=== PATIENT | female | born 1965 | race Two or more races ===

== ENCOUNTER 2017-06-17 20:14 | Emergency (ER) | payer BC ==
[2017-06-17] MEDS ORDERED: Lidocaine 2% PF * 5 ML VIAL INJ ONE (20:39)
--- NOTE | 2017-06-17 20:40 | UC ---
Laceration HPI - HPI Summary HPI Summary: Pt presents with laceration to left thumb. She tells me that about an hour ago this evening, she was slicing bread and the knife slipped and she sustained a laceration to her distal left thumb pad. She is unsure when her last tetanus was and is refusing an updated tdap today. - History Of Current Complaint Chief Complaint: UCLaceration Stated Complaint: FINGER LACERATION Time Seen by Provider: 06/17/17 20:39 Hx Obtained From: Patient Hx Last Menstrual Period: menopause Laceration Location: Finger Mechanism Of Injury: Sharp Trauma Onset/Duration: Sudden Onset Severity: Moderate Pain Intensity: 6 Pain Scale Used: 0-10 Numeric - Allergies/Home Medications Allergies/Adverse Reactions: Allergies Allergy/AdvReac Type Severity Reaction Status Date / Time No Known Allergies Allergy Verified 08/18/13 12:49 PMH/Surg Hx/FS Hx/Imm Hx Previously Healthy: Yes - Surgical History Surgical History: Yes Surgery Procedure, Year, and Place: 1979 tonsillectomy - Social History Occupation: Employed Full-time Lives: With Family Alcohol Use: Occasionally Substance Use Type: None Smoking Status (MU): Never Smoked Tobacco Review of Systems Constitutional: Negative Skin: Other - laceration to left thumb Respiratory: Negative Cardiovascular: Negative Neurovascular: Negative Musculoskeletal: Negative All Other Systems Reviewed And Are Negative: Yes Physical Exam Triage Information Reviewed: Yes Appearance: Well-Appearing, No Pain Distress, Well-Nourished Vital Signs: Initial Vital Signs Temp 98.1 F 06/17/17 20:22 Pulse 72 06/17/17 20:22 Resp 16 06/17/17 20:22 BP 130/80 06/17/17 20:22 Pulse Ox 99 06/17/17 20:22 Vital Signs Reviewed: Yes Respiratory: Positive: Chest non-tender, Lungs clear, Normal breath sounds Cardiovascular: Positive: RRR, No Murmur, Pulses Normal, Brisk Capillary Refill - Left distal thumb Musculoskeletal: Positive: Strength Intact - Left thumb, ROM Intact - Left thumb , No Edema - Left distal thumb Neurological: Positive: Alert, Other: - Sensations intact left distal thumb above and below the point of injury Psychological: Positive: Age Appropriate Behavior Skin: Positive: Other - 1.0cm linear superfericial laceration to distal left thumb pad. No nail or tendon involvement. Bleeding was stopped with direct pressure. No foreign bodies appreciated. Laceration Repair - Laceration Repair 1 Description: Linear Laceration Size After Repair: Length (cm) - 1.0 Modified For Repair: No Type Injection: Local Anesthesia Used: 2.0% Lido Cleansing Completed Via Routine Prep: Yes Closure Material: Sutures - FOUR 5-0 Suture Of: Skin Suture Type: Nylon Laceration Course/Dx - Course/Dx Course Of Treatment: A time out was performed, witnessed, and signed. The area was irrigated with 50mL sterile saline. 3mL of 2% lidocaine without epi was administered and good anesthetization was achieved. An Iodine swab was used to cleanse the area. In the usual sterile fashion, FOUR 5-0 nylon sutures were placed. The wound was bandaged with telfa and tube gauze. Pt tolerated procedure well. She refused tdap update at this visit. - Differential Dx - Laceration/Wound Differental Diagnoses: Laceration Provider Diagnoses: 1.0cm laceration to left thumb Discharge - Discharge Plan Condition: Stable Disposition: HOME Patient Education Materials: Care For Your Stitches (ED) Referrals: Linn Moy MD [Primary Care Provider] - Additional Instructions: If you develop a fever, shortness of breath, chest pain, new or worsening symptoms - please call your PCP or go to the ED. Your blood pressure was mildly elevated at todays visit. Please see your primary provider within 4 weeks for recheck and re-evaluation. 1) Monitor the area for increased pain, swelling, colored drainage, fever, or chills - if you develop any of these symptoms - please call your PCP or return to the Urgent Care. 2) Please keep the bandage clean, dry, and intact for the next 24-48hours. 3) Please return in 10-14 days to have your FOUR stitches removed.
[2017-06-17 20:50] VITALS: BP 130/80
== END 2017-06-17 21:32 | disposition home or self-care (01) ==
LOC: UCEAST 20:14
DX: S61.012A Laceration without foreign body of left thumb without damage to nail, initial encounter (principal); W26.0XXA Contact with knife, initial encounter; Y92.9 Unspecified place or not applicable
CPT/HCPCS: 12001; 99211; G0463

== ENCOUNTER 2018-01-10 12:17 | Emergency (ER) | payer BC ==
--- NOTE | 2018-01-10 12:23 | UC ---
Skin Complaint HPI - HPI Summary HPI Summary: 52 yo female presents with linear ?rash to right upper arm. She tells me that 1 week ago she was outside a lot and day later noticed a linear rash to her right upper arm. She denies any foreign contacts to the area, but notes that she has a dog and he is being treated for hookworm. She is concerned she may have a worm as well. The linear area started off itchy, but no longer itches. Not spreading. Denies fever or chills. - History of Current Complaint Time Seen by Provider: 01/10/18 12:23 Stated Complaint: SKIN COMPLAINT Hx Obtained From: Patient Hx Last Menstrual Period: menopause Onset/Duration: Sudden Onset Timing: Constant Current Severity: None - Allergy/Home Medications Allergies/Adverse Reactions: Allergies Allergy/AdvReac Type Severity Reaction Status Date / Time No Known Allergies Allergy Verified 01/10/18 12:29 Review of Systems Constitutional: Negative Skin: Rash Respiratory: Negative Cardiovascular: Negative Neurovascular: Negative Neurological: Negative Psychological: Negative All Other Systems Reviewed And Are Negative: Yes PMH/Surg Hx/FS Hx/Imm Hx - Additional Past Medical History Additional PMH: None Previously Healthy: Yes - Surgical History Surgical History: Yes Surgery Procedure, Year, and Place: 1979 tonsillectomy - Family History Known Family History: Positive: None - Social History Occupation: Employed Full-time Lives: With Family Alcohol Use: Occasionally Substance Use Type: None Smoking Status (MU): Never Smoked Tobacco Physical Exam - Summary Physical Exam Summary: GENERAL: NAD. WDWN. No pain distress. SKIN: Right upper arm with 3.0cm linear vertical raised area of skin. Mild erythema around the area. NTTP. No open wound. No streaking, bleeding, or drainage. NECK: Supple. Nontender. No lymphadenopathy. CHEST: No accessory muscle use. Breathing comfortably and in no distress. CV: Pulses intact NEURO: Alert. CN II-XII grossly intact. PSYCH: Age appropriate behavior. Triage Information Reviewed: Yes Vital Signs: Vital Signs: Temp Pulse Resp BP Pulse Ox 98.1 F 57 14 100/69 100 01/10/18 12:22 01/10/18 12:22 01/10/18 12:22 01/10/18 12:22 01/10/18 12:22 Vital Signs Reviewed: Yes Course/Dx - Course Course Of Treatment: Possible worm infection vs contact dermatitis. Will treat with albendazole and have her f/u if her symptoms do not improve. - Diagnoses Provider Diagnoses: Linear rachel right upper arm Discharge - Sign-Out/Discharge Documenting (check all that apply): Patient Departure - Discharge Plan Condition: Stable Disposition: HOME Prescriptions: Albendazole TAB (NF) [Albenza] 400 mg PO DAILY #6 tab Patient Education Materials: Albendazole (By mouth) Referrals: Linn Moy MD [Primary Care Provider] - Additional Instructions: If you develop a fever, shortness of breath, chest pain, new or worsening symptoms - please call your PCP or go to the ED. Per institutional requirements, I have reviewed the chart, however, I was not consulted specifically or made aware of this patient by the above midlevel provider. I did not personally evaluate, interact with , or disposition this patient. - Billing Disposition and Condition Condition: STABLE Disposition: Home
[2018-01-10 12:29] VITALS: BP 100/69
== END 2018-01-10 12:55 | disposition home or self-care (01) ==
LOC: UCEAST 12:17
DX: L98.8 Other specified disorders of the skin and subcutaneous tissue (principal)
CPT/HCPCS: 99212; G0463